=== PATIENT | female | born 1985 | race Hispanic/Latino ===

== ENCOUNTER 2018-10-09 11:39 | Emergency (ER) | payer SELFPAY ==
[2018-10-09 12:29] LABS: Protime INR 1.07
[2018-10-09 12:30] LABS: Absolute Lymphocytes (CBC) 1.6 K/uL (0.7-4.9); Basophils % 1.2 % (0-1.3); Lymphocytes % 13.3 % (15.3-44.8); MPV 8.2 fL (7.6-11.3)
--- NOTE | 2018-10-09 12:33 | EKG ---
Test Date: 2018-10-09 Test Time: 11:55:41 Non Destructive Testing Supervisor: CHELE MEASUREMENT RESULTS: Intervals: Rate: 66 WV: 150 QRSD: 90 QT: 412 QTc: 431 [place]: P: 18 WV: 150 QRS: 36 T: 29 INTERPRETIVE STATEMENTS: Normal sinus rhythm Normal ECG No previous ECG available for comparison Electronically Signed On 10-09-18 12:32:32 CDT by Shan Klein
[2018-10-09 12:41] LABS: BUN Blood Urea Nitrogen 7 mg/dL (7-18); Bicarbonate 22 mmol/L (21-32); Glucose Level 86 mg/dL (74-106); Magnesium 2.2 mg/dL (1.8-2.4); Potassium 3.7 mmol/L (3.5-5.1); Sodium Level 140 mmol/L (136-145)
[2018-10-09 13:55] LABS: Urine Blood 3+ (NEG); Urine Glucose NEGATIVE (NEG); Urine Protein NEGATIVE (NEG); Urine Specific Gravity 1.015 (1.005-1.030)
--- NOTE | 2018-10-09 14:34 | EDPHYS ---
Physician Documentation [facility] Name: Nayely Pearce Age: 32 yrs Sex: Female : 1985 Arrival Date: 10/09/2018 Time: 11:45 Bed 15 Private MD: ED Physician Ashwin Patton HPI: 10/09 12:00 This 32 yrs old Female presents to ER via EMS with complaints of Dizziness. cp 12:00 The patient presents with dizziness, lightheadedness. cp 12:00 Onset: The symptoms/episode began/occurred 3 day(s) ago. Context: just prior to the cp episode the patient experienced no apparent symptoms. Associated signs and symptoms: Pertinent positives: confusion, Pertinent negatives: abdominal pain, chest pain, focal weakness, near-syncope, numbness, syncope, tingling. Severity of symptoms: in the emergency department the symptoms have improved mildly. Patient's baseline: Neuro: alert and fully oriented, Motor: no deficits, Ambulation: walks without assistance, Speech: normal, The patient has a previous history of chronic drug use. 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 - Social history:: Smoking status: Patient uses tobacco products, denies chronic smoking, but will smoke occasionally. - Ebola Screening: : No symptoms or risks identified at this time. ROS: 12:05 Constitutional: Negative for body aches, chills, fever, poor PO intake. cp 12:05 Eyes: Negative for injury, pain, redness, and discharge. cp 12:05 ENT: Negative for drainage from ear(s), ear pain, sore throat, difficulty swallowing, difficulty handling secretions. 12:05 Neck: Negative for pain with movement, pain at rest, stiffness. 12:05 Cardiovascular: Negative for chest pain, edema, palpitations. 12:05 Respiratory: Negative for cough, shortness of breath, wheezing. 12:05 Abdomen/GI: Negative for abdominal pain, nausea, vomiting, and diarrhea, black/tarry stool, rectal bleeding. 12:05 Neuro: Positive for dizziness, Negative for altered mental status, headache, numbness, syncope, weakness. 12:05 All other systems are negative. Exam: 11:58 ECG was reviewed by the Attending Physician. cp 12:15 Constitutional: The patient appears in no acute distress, alert, awake, cp non-diaphoretic, non-toxic, well developed, well nourished. 12:15 Head/Face: Normocephalic, atraumatic. cp 12:15 Eyes: Periorbital structures: appear normal, Pupils: equal, round, and reactive to light and accomodation, Extraocular movements: intact throughout, Conjunctiva: normal, no exudate, no injection, Sclera: no appreciated abnormality, Lids and lashes: appear normal, bilaterally. 12:15 ENT: External ear(s): are unremarkable, Ear canal(s): are normal, clear, TM's: bulging, is not appreciated, bilaterally, dullness, bilaterally, erythema, is not appreciated, bilaterally, Nose: is normal, Mouth: is normal, Posterior pharynx: is normal, airway is patent, no erythema, no exudate. 12:15 Chest/axilla: Inspection: normal, Palpation: is normal, no crepitus, no tenderness. 12:15 Cardiovascular: Rate: normal, Rhythm: regular, Heart sounds: murmur, not appreciated, rub, not appreciated, gallop, not appreciated, Edema: is not appreciated, JVD: is not appreciated. 12:15 Respiratory: the patient does not display signs of respiratory distress, Respirations: normal, no use of accessory muscles, no retractions, no splinting, no tachypnea, labored breathing, is not present, Breath sounds: are clear throughout, no decreased breath sounds, no stridor, no wheezing. 12:15 Back: pain, is absent, ROM is normal. 12:15 Skin: cellulitis, is not appreciated, no rash present. 12:15 Neuro: Orientation: to person, place \T\ time. Mentation: is normal, Cerebellar function: Romberg testing is negative, normal finger to nose testing, heel to escobedo testing is normal, Motor: moves all fours, strength is normal, Sensation: is normal. 14:31 Abdomen/GI: Rectal exam: Stool: brown, guaiac negative. cp Vital Signs: 11:45 BP 166 / 97; Pulse 74; Resp 16 S; Temp 98.3(O); Pulse Ox 100% on R/A; Pain 0/10; jl7 12:39 BP 139 / 75 Supine; Pulse 60; Resp 16 S; Pulse Ox 100% on R/A; jl7 12:41 BP 149 / 89 Sitting; Pulse 61; jl7 12:43 BP 142 / 102 Standing; Pulse 71; jl7 14:00 BP 143 / 86; Pulse 54; Resp 16 S; Pulse Ox 99% on R/A; jl7 MDM: 11:53 Patient medically screened. cp 12:00 Differential diagnosis: cardiac arrhythmia, CVA, generalized weakness, GI bleed, cp hypovolemia, idiopathic dizziness, TIA. 14:33 Data reviewed: vital signs, nurses notes, lab test result(s), EKG, and as a result, I cp will discharge patient. 14:33 Counseling: I had a detailed discussion with the patient and/or guardian regarding: the cp historical points, exam findings, and any diagnostic results supporting the discharge/admit diagnosis, lab results, to return to the emergency department if symptoms worsen or persist or if there are any questions or concerns that arise at home. Response to treatment: the patient's symptoms have mildly improved after treatment, and as a result, I will discharge patient. 14:33 ED course: VSS. Discussed results of labs showing anemia. Patient reports history of cp anemia in the past requiring transfusion. Guaiac negative and patient denies vaginal bleeding. Will discharge to home for continued monitoring. 10/09 11:48 Order name: Basic Metabolic Panel; Complete Time: 12:42 cp 10/09 11:48 Order name: CBC with Diff; Complete Time: 12:42 cp 10/09 12:43 Interpretation: Normal except: WBC 12.1; HGB 9.0; HCT 30.0; MCV 73.3; MCH 22.1; MCHC cp 30.1; PLT 790; RDW 16.5; BELLA% 78.8; LYM% 13.3; NEUT A 9.6. 10/09 11:48 Order name: Magnesium; Complete Time: 12:42 cp 10/09 11:48 Order name: PT-INR; Complete Time: 12:42 cp 10/09 13:28 Order name: Urine Dipstick--Ancillary (enter results); Complete Time: 14:00 10/09 14:00 Interpretation: Normal except: UBLD 3+; UESTR TRACE. cp 10/09 13:28 Order name: Urine --Ancillary (enter results); Complete Time: 14:00 10/09 11:48 Order name: Orthostatics; Complete Time: 12:48 cp 10/09 11:48 Order name: EKG; Complete Time: 11:49 cp 10/09 11:48 Order name: Cardiac monitoring; Complete Time: 11:54 cp 10/09 11:48 Order name: EKG - Nurse/Tech; Complete Time: 11:54 cp 10/09 11:48 Order name: IV Saline Lock; Complete Time: 12:36 cp 10/09 11:48 Order name: Labs collected and sent; Complete Time: 12:36 cp 10/09 11:48 Order name: O2 Per Protocol; Complete Time: 11:54 cp 10/09 14:32 Order name: Occult Blood--Ancillary 10/09 11:48 Order name: O2 Sat Monitoring; Complete Time: 11:54 cp 10/09 11:48 Order name: Urine Dipstick-Ancillary (obtain specimen); Complete Time: 13:50 cp 10/09 11:48 Order name: Urine Test (obtain specimen); Complete Time: 13:50 cp EC:58 Rate is 66 beats/min. Rhythm is regular. NE interval is normal. QRS interval is normal. cp QT interval is normal. T waves are Flattened in lead III. Interpreted by me. Reviewed by me. Administered Medications: No medications were administered Disposition: 10/09/18 14:33 Discharged to Home. Impression: Anemia in chronic diseases classified elsewhere, Dizziness and giddiness, Elevated blood-pressure reading, without diagnosis of hypertension. - Condition is Stable. - Discharge Instructions: Anemia, Nonspecific, Dizziness, How to Take Your Blood Pressure, [id number], Form - Blood Pressure Record Sheet. - Medication Reconciliation Form, Thank You Letter, Antibiotic Education, Prescription Opioid Use form. - Follow up: Private Physician; When: 1 - 2 days; Reason: Recheck today's complaints. - Problem is new. - Symptoms have improved. Addendum: 10/12/2018 09:10 Co-signature as Attending Physician, Ashwin Patton MD I agree with the assessment and k dr plan of care. Signatures: Dispatcher [employer] EDMS Ashwin Patton MD MD [facility] Delon Alcantar PA PA cp Leal, Jahala RN RN jl7 Corrections: (The following items were deleted from the chart) 10/09 14:51 14:33 10/09/2018 14:33 Discharged to Home. Impression: Anemia in chronic diseases jl7 classified elsewhere; Dizziness and giddiness; Elevated blood-pressure reading, without diagnosis of hypertension. Condition is Stable. Forms are Medication Reconciliation Form, Thank You Letter, Antibiotic Education, Prescription Opioid Use. Follow up: Private Physician; When: 1 - 2 days; Reason: Recheck today's complaints. Problem is new. Symptoms have improved. cp
--- NOTE | 2018-10-09 14:34 | ER ---
Nurse's Notes [facility] Name: Nayely Pearce Age: 32 yrs Sex: Female : 1985 Arrival Date: 10/09/2018 Time: 11:45 Bed 15 Private MD: Diagnosis: Anemia in chronic diseases classified elsewhere;Dizziness and giddiness;Elevated blood-pressure reading, without diagnosis of hypertension Presentation: 10/09 11:45 Presenting complaint: EMS states: Pt at [facility] x 3 weeks, intermittent confusion jl7 and understanding words, and dizziness x 4 days. Transition of care: patient was received from another setting of care (rehabilitation facility). Onset of symptoms was October 05, 2018. Risk Assessment: Do you want to hurt yourself or someone else? Patient reports no desire to harm self or others. Initial Sepsis Screen: Does the patient meet any 2 criteria? No. Patient's initial sepsis screen is negative. Does the patient have a suspected source of infection? No. Patient's initial sepsis screen is negative. Care prior to arrival: None. 11:45 Method Of Arrival: EMS: [facility] 7 11:45 Acuity: ROBIN 3 jl7 Triage Assessment: 11:55 General: Appears in no apparent distress. comfortable, Behavior is calm, cooperative, jl7 appropriate for age. Pain: Denies pain. EENT: No signs and/or symptoms were reported regarding the EENT system. Neuro: Level of Consciousness is awake, alert, obeys commands, Oriented to person, place, time, situation, Youth Teacher are equal bilaterally Moves all extremities. Full function Gait is steady, Speech is normal, Facial symmetry appears normal. Cardiovascular: Heart tones S1 S2 present Patient's skin is warm and dry. Respiratory: Airway is patent Respiratory effort is even, unlabored, Respiratory pattern is regular, symmetrical, Breath sounds are clear bilaterally. GI: No signs and/or symptoms were reported involving the gastrointestinal system. : No signs and/or symptoms were reported regarding the genitourinary system. Derm: Skin is pink, warm \T\ dry. Musculoskeletal: No signs and/or symptoms reported regarding the musculoskeletal system. 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 - Social history:: Smoking status: Patient uses tobacco products, denies chronic smoking, but will smoke occasionally. - Ebola Screening: : No symptoms or risks identified at this time. Screenin:00 Abuse screen: Denies threats or abuse. Denies injuries from another. Nutritional jl7 screening: No deficits noted. Tuberculosis screening: No symptoms or risk factors identified. Fall Risk IV access (20 points). Total Ramirez Fall Scale indicates No Risk (0-24 pts). Assessment: 12:00 General: See triage assessment. jl7 12:51 Reassessment: Patient appears in no apparent distress at this time. No changes from jl7 previously documented assessment. Patient and/or family updated on plan of care and expected duration. Pain level reassessed. Patient is alert, oriented x 3, equal unlabored respirations, skin warm/dry/pink. Vital Signs: 11:45 BP 166 / 97; Pulse 74; Resp 16 S; Temp 98.3(O); Pulse Ox 100% on R/A; Pain 0/10; jl7 12:39 BP 139 / 75 Supine; Pulse 60; Resp 16 S; Pulse Ox 100% on R/A; jl7 12:41 BP 149 / 89 Sitting; Pulse 61; jl7 12:43 BP 142 / 102 Standing; Pulse 71; jl7 14:00 BP 143 / 86; Pulse 54; Resp 16 S; Pulse Ox 99% on R/A; jl7 ED Course: 11:45 Patient arrived in ED. jl7 11:45 Arm band placed on right wrist. jl7 11:46 Delon Alcantar PA is PHCP. cp 11:47 Ashwin Patton MD is Attending Physician. cp 11:47 Triage completed. jl7 11:57 Damir Henriquez, BAR is Primary Nurse. jl7 12:00 Patient has correct armband on for positive identification. Bed in low position. Call [facility] light in reach. Side rails up X 1. Pulse ox on. NIBP on. 12:05 EKG done, by farm equipment service technician. reviewed by Delon MORA. at1 12:05 Initial lab(s) drawn, by ok, sent to lab. jb1 12:43 Inserted saline lock: 22 gauge in left antecubital area, using aseptic technique. Blood jb1 collected. 13:50 Urine collected: clean catch specimen, clear, bhaskar colored. jb1 14:45 Served as a workers' compensation mediator during rectal exam. jl7 14:50 IV discontinued, intact, bleeding controlled, No redness/swelling at site. Pressure jl7 dressing applied. Administered Medications: No medications were administered Outcome: 14:33 Discharge ordered by . ronel 14:50 Discharged to Rehab Facility jl7 14:50 Condition: stable 14:50 Discharge instructions given to patient, Instructed on discharge instructions, follow up and referral plans. Demonstrated understanding of instructions, follow-up care. 14:51 Patient left the ED. jl7 Signatures: Michael Rdz jb1 Angela Harvey, risk management consultant EKG Tat1 Delon Alcantar, Damir Hurtado cp, RN RN jl7
== END 2018-10-09 14:51 | disposition home or self-care (01) ==
LOC: ER 11:39
DX: D63.8 Anemia in other chronic diseases classified elsewhere (principal); R03.0 Elevated blood-pressure reading, without diagnosis of hypertension; F41.9 Anxiety disorder, unspecified; E03.9 Hypothyroidism, unspecified; Z72.0 Tobacco use
CPT/HCPCS: 36415; 80048; 81003; 81025; 82272; 83735; 85025; 85610; 93005; 99284

== ENCOUNTER 2018-10-21 06:57 | Emergency (ER) | payer SELFPAY ==
--- OUTSIDE RECORDS SUMMARY | 2018-10-21 07:00 | XMS REPORT | Clinical Summary ---
:1985 Author Organization [facility] Address [address] [place] [address] Care Team Providers Name Role Phone Asked, No Pcp Primary Care Provider Unavailable Allergies No Known Allergies Medications Medication Sig Dispensed Refills Start Date End Date Status levothyroxine TAKE 1 TABLET BY 6 05/15/2016 Active (SYNTHROID, LEVOXYL) [address] EVERY mcg tablet DAY escitalopram (LEXAPRO) TAKE 1 TABLET BY 4 05/15/2016 Active 20 MG tablet ORAL ROUTE EVERY DAY Active Problems Problem Noted Date Closed fracture of radius 08/27/2016 Right wrist pain 07/02/2016 Extensor tendon rupture of hand 07/02/2016 Mechanical complication of internal orthopedic device, implant or graft 2016 Social History Tobacco Use Types Packs/Day Years Used Date Never Smoker Alcohol Use Drinks/Week oz/Week Comments No Sex Assigned at Date Recorded Not on file Job Start Date Occupation Industry Not on file Not on file Not on file Travel History Travel Start Travel End No recent travel history available. Last Filed Vital Signs Not on file Plan of Treatment Health Maintenance Due Date Last Done Comments INFLUENZA VACCINE 10/08/2018 Results Not on fileafter 10/20/2017
--- NOTE | 2018-10-21 08:04 | RAD REPORT ---
EXAM DESCRIPTION: CT - Head Brain Wo Cont - 10/21/2018 7:48 am CLINICAL HISTORY: HTN and blurred vision Headache, hypertension, blurry vision COMPARISON: No comparisons TECHNIQUE: All CT scans are performed using dose optimization technique as appropriate and may inclu de automated exposure control or mA/KV adjustment according to patient size. FINDINGS: No intracranial hemorrhage, hydrocephalus or extra-axial fluid collection.No areas of brai n edema or evidence of midline shift. The paranasal sinuses and mastoids are clear. The calvarium is intact. IMPRESSION: No acute intracranial abnormality.
[2018-10-21] MEDS ORDERED: LISINOPRIL 20 MG TAB ONE (08:15)
[2018-10-21] MEDS ORDERED: IBUPROFEN 400 MG TAB ONE (08:15)
[2018-10-21 08:33] LABS: Absolute Lymphocytes (CBC) 1.3 K/uL (0.7-4.9); Basophils % 0.7 % (0-1.3); Hematocrit 30.5 % (36.0-45.0); Lymphocytes % 15.1 % (15.3-44.8); MPV 8.4 fL (7.6-11.3); RBC Red Blood Cell Count 4.07 M/uL (3.86-4.86)
[2018-10-21 08:53] LABS: BUN Blood Urea Nitrogen 6 mg/dL (7-18); Bicarbonate 27 mmol/L (21-32); Glucose Level 89 mg/dL (74-106); Potassium 3.7 mmol/L (3.5-5.1); Sodium Level 144 mmol/L (136-145)
--- NOTE | 2018-10-21 09:46 | ER ---
Nurse's Notes [facility] Name: Nayely Pearce Age: 32 yrs Sex: Female : 1985 Arrival Date: 10/21/2018 Time: 06:58 Bed 18 Private MD: Diagnosis: Hypertensive heart disease;Hypothyroidism, unspecified;Headache Presentation: 10/21 06:58 Presenting complaint: EMS states: [facility] and an RN checked her bp and it was 159/99 and pt was having some blurred vision so they sent her to the ER. Transition of care: patient was received from another setting of care (rehabilitation facility). Onset of symptoms was October 21, 2018. Risk Assessment: Do you want to hurt yourself or someone else? Patient reports no desire to harm self or others. Initial Sepsis Screen: Does the patient meet any 2 criteria? No. Patient's initial sepsis screen is negative. Does the patient have a suspected source of infection? No. Patient's initial sepsis screen is negative. Care prior to arrival: None. 06:58 Method Of Arrival: EMS: [facility] tr5 06:58 Acuity: ROBIN 4 tr5 Triage Assessment: 07:00 General: Appears in no apparent distress. comfortable, Behavior is cooperative, bp appropriate for age, anxious. Pain: Denies pain. EENT: Reports blurred vision. Neuro: No deficits noted. Cardiovascular: No deficits noted. Respiratory: No deficits noted. GI: No signs and/or symptoms were reported involving the gastrointestinal system. : No signs and/or symptoms were reported regarding the genitourinary system. Derm: No deficits noted. Musculoskeletal: No deficits noted. Historical: - Allergies: 07:01 No Known Allergies; tr5 - Home Meds: 07:01 hydroxyzine HCl 25 mg oral tab [Active]; trazodone 50 mg oral tab [Active]; tr5 - PMHx: 07:01 Anxiety; Hypothyroidism; tr5 - PSHx: 07:01 None; tr5 - Immunization history:: Adult Immunizations up to date. - Social history:: Smoking status: Patient/guardian denies using tobacco, never smoked. - Ebola Screening: : No symptoms or risks identified at this time. Screenin:11 Abuse screen: Denies threats or abuse. Denies injuries from another. Nutritional bp screening: No deficits noted. Tuberculosis screening: No symptoms or risk factors identified. Fall Risk None identified. Assessment: 07:00 General: SEE TRIAGE NOTE. bp 08:15 Reassessment: ALL CURRENT ORDERS COMPLETED, RESULTS PENDING. bp 09:40 Reassessment: ALL CURRENT ORDERS COMPLETED, DISPO PENDING. bp 10:11 Reassessment: PT D/C HOME AMBULATORY WITH FRIEND, DX WITH HYPERTENSIVE [place]ON. bp Vital Signs: 07:01 BP 159 / 99; Pulse 75; Resp 16; Temp 98.5(O); Pulse Ox 100% on R/A; Weight 86.18 kg; tr5 Height 5 ft. (152.40 cm); 08:22 BP 149 / 83; Pulse 56; Resp 16; Pulse Ox 100% ; bp 09:39 BP 135 / 73; Pulse 55; Resp 16; Pulse Ox 100% ; bp 10:11 BP 133 / 83; Pulse 54; Resp 16; Temp 98.5; Pulse Ox 100% ; bp 07:01 Body Mass Index 37.11 (86.18 kg, 152.40 cm) tr5 Visual Acuity: 07:38 Left Eye Visual acuity 20/20, Pupil size 4 mm, ; Right Eye Visual acuity 20/20, ; Both bp Eyes Visual acuity 20/20; Without Lenses; ED Course: 06:58 Patient arrived in ED. tr5 07:00 Triage completed. tr5 07:01 Arm band placed on. tr5 07:06 Ashwin Patton MD is Attending Physician. kdr 07:10 Maciel Horne, BAR is Primary Nurse. bp 07:11 Patient has correct armband on for positive identification. Bed in low position. Call bp light in reach. Side rails up X2. 07:30 Inserted saline lock: 20 gauge in left antecubital area, using aseptic technique. Blood bp collected. 08:48 CT Head Brain wo Cont In Process Unspecified. EDMS 10:12 No provider procedures requiring assistance completed. IV discontinued, intact, bp bleeding controlled, No redness/swelling at site. Pressure dressing applied. Administered Medications: 08:00 Drug: Lisinopril 20 mg Route: PO; bp 10:13 Follow up: Response: Pain is decreased bp 08:00 Drug: Ibuprofen 800 mg Route: PO; bp 10:13 Follow up: Response: Pain is decreased bp Outcome: 09:45 Discharge ordered by . kdr 10:12 Discharged to home ambulatory, with friend. bp 10:12 Condition: stable 10:12 Discharge instructions given to patient, Instructed on discharge instructions, follow up and referral plans. medication usage, Demonstrated understanding of instructions, follow-up care, medications, Prescriptions given X 1. 10:13 Patient left the ED. bp Signatures: Dispatcher [employer] EDMS Ashwin Patton MD MD kdr Peltier, Brian RN RN bp Hu Sims RN RN tr5
--- NOTE | 2018-10-21 09:46 | EDPHYS ---
Physician Documentation [facility] Name: Nayely Pearce Age: 32 yrs Sex: Female : 1985 Arrival Date: 10/21/2018 Time: 06:58 Bed 18 Private MD: ED Physician Ashwin Patton HPI: 10/21 07:37 This 32 yrs old Female presents to ER via EMS with complaints of High Blood kdr Pressure, Blurred Vision. 07:37 The patient has elevated blood pressure and discovered this Facility. Onset: The kdr symptoms/episode began/occurred gradually, yesterday. Modifying factors: The symptoms are aggravated by Nothing, The symptoms are alleviated by Nothing. Associated signs and symptoms: Pertinent positives: headache, nausea, Pertinent negatives: chest pain, dizziness, dyspnea, lightheadedness, visual changes, vomiting, weakness. Severity of symptoms: At its worst the blood pressure was mild, just prior to arrival, moderate, in the emergency department the blood pressure is improved, mildly. The patient has experienced similar episodes in the past, a few times. The patient has been recently seen by a physician: The patient has been recently seen at the [facility], a couple of weeks ago. Historical: - Allergies: 07:01 No Known Allergies; tr5 - Home Meds: 07:01 hydroxyzine HCl 25 mg oral tab [Active]; trazodone 50 mg oral tab [Active]; tr5 - PMHx: 07:01 Anxiety; Hypothyroidism; tr5 - PSHx: 07:01 None; tr5 - Immunization history:: Adult Immunizations up to date. - Social history:: Smoking status: Patient/guardian denies using tobacco, never smoked. - Ebola Screening: : No symptoms or risks identified at this time. ROS: 07:37 Constitutional: Negative for fever, chills, and weight loss, Eyes: Negative for injury, kdr pain, redness, and discharge, ENT: Negative for injury, pain, and discharge, Neck: Negative for injury, pain, and swelling, Cardiovascular: Negative for chest pain, palpitations, and edema, Respiratory: Negative for shortness of breath, cough, wheezing, and pleuritic chest pain, Abdomen/GI: Negative for abdominal pain, nausea, vomiting, diarrhea, and constipation, Back: Negative for injury and pain, : Negative for injury, bleeding, discharge, and swelling, MS/Extremity: Negative for injury and deformity, Skin: Negative for injury, rash, and discoloration, Psych: Negative for depression, anxiety, suicide ideation, homicidal ideation, and hallucinations, Allergy/Immunology: Negative for hives, rash, and allergies, Endocrine: Negative for neck swelling, polydipsia, polyuria, polyphagia, and marked weight changes, Hematologic/Lymphatic: Negative for swollen nodes, abnormal bleeding, and unusual bruising. 07:37 Neuro: Positive for headache, Negative for altered mental status, dizziness, gait disturbance, hearing loss, loss of consciousness, numbness, seizure activity, speech changes, syncope, near syncope, tingling, tinnitus, tremor, visual changes, weakness, acute changes. Exam: 07:37 Constitutional: This is a well developed, well nourished patient who is awake, alert, kdr and in no acute distress. Head/Face: Normocephalic, atraumatic. Eyes: Pupils equal round and reactive to light, extra-ocular motions intact. Lids and lashes normal. Conjunctiva and sclera are non-icteric and not injected. Cornea within normal limits. Periorbital areas with no swelling, redness, or edema. Neck: Trachea midline, no thyromegaly or masses palpated, and no cervical lymphadenopathy. Supple, full range of motion without nuchal rigidity, or vertebral point tenderness. No Meningismus. Chest/axilla: Normal chest wall appearance and motion. Nontender with no deformity. No lesions are appreciated. Cardiovascular: Regular rate and rhythm with a normal S1 and S2. No gallops, murmurs, or rubs. Normal PMI, no JVD. No pulse deficits. Respiratory: Lungs have equal breath sounds bilaterally, clear to auscultation and percussion. No rales, rhonchi or wheezes noted. No increased work of breathing, no retractions or nasal flaring. Abdomen/GI: Soft, non-tender, with normal bowel sounds. No distension or tympany. No guarding or rebound. No evidence of tenderness throughout. Back: No spinal tenderness. No costovertebral tenderness. Full range of motion. Skin: Warm, dry with normal turgor. Normal color with no rashes, no lesions, and no evidence of cellulitis. MS/ Extremity: Pulses equal, no cyanosis. Neurovascular intact. Full, normal range of motion. Neuro: Awake and alert, GCS 15, oriented to person, place, time, and situation. Cranial nerves II-XII grossly intact. Motor strength 5/5 in all extremities. Sensory grossly intact. Cerebellar exam normal. Normal gait. Psych: Awake, alert, with orientation to person, place and time. Behavior, mood, and affect are within normal limits. Vital Signs: 07:01 BP 159 / 99; Pulse 75; Resp 16; Temp 98.5(O); Pulse Ox 100% on R/A; Weight 86.18 kg; tr5 Height 5 ft. (152.40 cm); 08:22 BP 149 / 83; Pulse 56; Resp 16; Pulse Ox 100% ; bp 09:39 BP 135 / 73; Pulse 55; Resp 16; Pulse Ox 100% ; bp 10:11 BP 133 / 83; Pulse 54; Resp 16; Temp 98.5; Pulse Ox 100% ; bp 07:01 Body Mass Index 37.11 (86.18 kg, 152.40 cm) tr5 Visual Acuity: 07:38 Left Eye Visual acuity 20/20, Pupil size 4 mm, ; Right Eye Visual acuity 20/20, ; Both bp Eyes Visual acuity 20/20; Without Lenses; MDM: 07:37 Data reviewed: vital signs, nurses notes, lab test result(s). kdr 09:45 Patient medically screened. kdr 10/21 07:35 Order name: CBC with Diff; Complete Time: 08:59 kdr 10/21 07:35 Order name: Chem 7; Complete Time: 09:36 kdr 10/21 07:35 Order name: CT Head Brain wo Cont; Complete Time: 08:59 kdr 10/21 07:37 Order name: TSH; Complete Time: 09:36 kdr 10/21 09:14 Order name: T4 Free; Complete Time: 09:36 EDMS Administered Medications: 08:00 Drug: Lisinopril 20 mg Route: PO; bp 10:13 Follow up: Response: Pain is decreased bp 08:00 Drug: Ibuprofen 800 mg Route: PO; bp 10:13 Follow up: Response: Pain is decreased bp Disposition: 10/21/18 09:45 Discharged to Home. Impression: Hypertensive heart disease, Hypothyroidism, unspecified, Headache. - Condition is Stable. - Discharge Instructions: General Headache Without Cause, Hypothyroidism, Hypertension, [id number]. - Prescriptions for Lisinopril 10 mg Oral Tablet - take 1 tablet by ORAL route once daily; 20 tablet. - Medication Reconciliation Form, Thank You Letter form. - Follow up: Private Physician; When: 2 - 3 days; Reason: If symptoms return, Further diagnostic work-up, Recheck today's complaints, Continuance of care, Re-evaluation by your physician. - Problem is an ongoing problem. - Symptoms have improved. Signatures: Dispatcher [employer] EDCA Ashwin Patton MD MD kdr Maciel Horne RN RN bp Hu Sims RN RN tr5 Corrections: (The following items were deleted from the chart) 10:13 09:45 10/21/2018 09:45 Discharged to Home. Impression: Hypertensive heart disease; bp Hypothyroidism, unspecified; Headache. Condition is Stable. Forms are Medication Reconciliation Form, Thank You Letter, Antibiotic Education, Prescription Opioid Use. Follow up: Private Physician; When: 2 - 3 days; Reason: If symptoms return, Further diagnostic work-up, Recheck today's complaints, Continuance of care, Re-evaluation by your physician. Problem is an ongoing problem. Symptoms have improved. kdr
== END 2018-10-21 10:13 | disposition home or self-care (01) ==
LOC: ER 06:57
DX: I11.9 Hypertensive heart disease without heart failure (principal); E03.9 Hypothyroidism, unspecified; F41.9 Anxiety disorder, unspecified
CPT/HCPCS: 36415; 70450; 80048; 84439; 84443; 85025